=== PATIENT | female | born 1935 | race Caucasian/White ===

== ENCOUNTER 2017-02-21 06:12 | Emergency (ER) | payer OTHER ==
[~2017-02-21] VITALS: Ht 162.6 cm; Wt 73.0 kg
[~2017-02-21 06:12] MED LIST: ACET500C5 PO; ALBU90AE INHALATION; ASPI-716 PO; BRIM15DR7 BOTH EYES; CARB1TAB23 PO; DOCU-144 PO; GABA300C16 PO; GUAI-637 PO; HYDR-3498 PO; LATA2.5D9 BOTH EYES; LOSA50TA2 PO; METH1ADH TP; MIRT15TA PO; NORT10CA3 PO; ROPI2TAB3 PO; SENN-36 PO; SERT50TA PO; SIMV40TA2 PO; TRAZ50TA18 PO
[2017-02-21] MEDS ORDERED: CEFEPIME 2GM/50 ML (PMX) 50 ML IVPB STA (06:13)
[2017-02-21 06:17] VITALS: Ht 162.6 cm; Wt 73.0 kg
[2017-02-21] MEDS ORDERED: VANCOMYCIN 1 GM (PMX) 250 ML IVPB ONE (06:30)
[2017-02-21] MEDS ORDERED: ACETAMINOPHEN 325 MG TAB PO ONE (06:30)
--- NOTE | 2017-02-21 06:58 | RADRPT ---
PROCEDURE: CT Brain without contrast. CLINICAL INDICATION: Headache TECHNIQUE: Axial images from the skull base through the vertex without IV contrast. Multiplanar r eformatted images were made. Images were reviewed on a PACS workstation. The CTDIvol is 45.0 mGy a nd the DLP is 810.25 mGycm. One or more of the following dose reduction techniques were used: autom ated exposure control, adjustment of the mA and/or kV according to patient size, or use of iterative reconstruction technique. COMPARISON: None. FINDINGS: Atrophy and prominent chronic microvascular ischemic changes are seen with ex vacuo dilatation of th e ventricles, left greater than right. 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 Intr acranial vascular calcification is seen. No definite acute territorial infarction or intracranial he morrhage. No mass or midline shift is seen. No extraaxial fluid collection is seen. Prior left noa ract surgery. Mucoperiosteal thickening of the ethmoids. IMPRESSION: No definite acute intracranial abnormality. Atrophy and chronic microvascular ischemic changes with left greater than right ventricular dilatation, likely ex vacuo. Sinus mucosal disease. RPTAT: [facility] Physician Ludy Date Time Electronically viewed and signed by Physician Ludy on 02/21/2017 06:58 LE/
--- NOTE | 2017-02-21 07:17 | RADRPT ---
PROCEDURE: XR Chest. CLINICAL INDICATION: Sepsis TECHNIQUE: Portable single view of the chest COMPARISON: None. FINDINGS: There is shallow lung inflation. Cardiomegaly. Bibasilar atelectasis versus infiltrates, left greate r than right. No large effusion. Mild pulmonary vascular congestion. Aortic calcification. Degenerat neo change of the spine with cement from vertebroplasty at at least 2 levels. IMPRESSION: Cardiomegaly and pulmonary vascular congestion with very shallow lung volumes. Basilar atelectasis v ersus infiltrates. RPTAT: [facility] Physician Ludy Date Time Electronically viewed and signed by Sangeetha Hollingsworth Physician on 02/21/2017 07:17 LE/
[2017-02-21 07:19] LABS: BASOPHILS % 0.3 % (0.0-2.0); EOSINOPHILS % 0.3 % (0.0-7.0); HEMATOCRIT 40.6 % (37.0-47.0); HEMOGLOBIN 12.6 g/dl (12.0-16.0); LYMPHOCYTES # 1.4 10^3/ul (0.8-2.9); MEAN CORPUSCULAR HEMOGLOBIN 30.2 pg (29.0-33.0); MEAN CORPUSCULAR VOLUME 97.4 fl (82.0-101.0); MEAN PLATELET VOLUME 9.5 fl (7.4-10.4); MONOCYTE # 0.7 10^3/ul (0.3-0.9); MONOCYTES % 8.3 % (0.0-11.0); NEUTROPHIL # 5.8 10^3/ul (1.6-7.5); NEUTROPHILS % 72.7 % (39.0-77.0); PLATELET COUNT 217 10^3/UL (140-415); RED BLOOD COUNT 4.17 10^6/ul (4.20-5.40); RED CELL DISTRIBUTION WIDTH 13.8 % (11.5-14.5)
[2017-02-21 07:32] LABS: INR 1.04; PROTIME 13.6 Sec (12.2-14.2); PT RATIO 1.1
[2017-02-21 07:33] LABS: PARTIAL THROMBOPLASTIN TIME 31.5 Sec (25.0-35.0)
[2017-02-21 07:35] LABS: ALBUMIN 3.9 g/dl (3.3-4.9); ALBUMIN/GLOBULIN RATIO 1.11; BILIRUBIN,INDIRECT 0.1 mg/dl (0-1.1); BILIRUBIN,TOTAL 0.1 mg/dl (0.2-1.3); CALCIUM 9.2 mg/dl (8.4-10.2); CREATININE 0.98 mg/dl (0.44-1.00); POTASSIUM 4.1 mmol/L (3.5-5.1); TOTAL PROTEIN 7.4 g/dl (6.1-8.1)
[2017-02-21 07:47] LABS: TROPONIN-I 0.041 ng/ml (0.00-0.12)
--- NOTE | 2017-02-21 08:43 | ERD ---
ER Documentation Chief Complaint Chief Complaint WOLF, fever, cough x 2 days. Initial ra sats 80%, HHN per EMS- some improve HPI Patient is a 81-year-old female with Parkinson's dementia and hypertension who presents with cough and fever. Please note the history and physical exam is limited secondary to the patient's dementia. The patient also complains of a headache for the past 2 days. She has had a productive cough with wheezing. She was brought in by ambulance and was given albuterol treatment by paramedics. She had high blood pressure. She was 82% on room air in the emergency department but she is usually on supplemental oxygen of 2 L nasal cannula. Upon review of old medical records the patient one previous visit to the ER in 2016. The ambulance had to divert to [facility] because [facility] was on diversion at 6 AM. ROS All systems reviewed and are negative except as per history of present illness. Medications Home Meds Active Scripts Docusate Sodium* (Colace*) 100 Mg Capsule, 100 MG PO BID, #30 CAP Prov:SHEYLA CORBIN 11/14/15 Reported Medications Acetaminophen* (Tylophen*) 500 Mg Capsule, 1000 MG PO Q8 Y for PAIN/FEVER , TAB 11/14/15 Methyl Salicylate/Menth/Camph (Salonpas Patch) 1 Adh.patch Adh..patch, 1 ADH.PATCH TP Q8 Y for NEEDED 11/14/15 Albuterol Sulfate (Proair Respiclick) 90 Mcg Aer.pow.ba, 2 PUFFS INHALATION Q6 Y for NEEDED, #1 BOTTLE 11/14/15 Guaifenesin* (Robitussin*) 100 Mg/5 Ml Syrup, 100 MG PO Q4H Y for COUGH, ML 11/14/15 Hydrocodone Bit-Acetaminophen* (Hydrocodone-APAP*) 5-325 Tablet, 1 TAB PO Q6H Y for PAIN, TAB 11/14/15 Sennosides* (Senokot*) 8.6 Mg Tablet, 25.8 TAB PO BID, TAB HOLD IF LOOS STOOL 11/14/15 Simvastatin* (Zocor*) 40 Mg Tablet, 40 MG PO QHS, #30 TAB 11/14/15 Losartan Potassium* (Cozaar*) 50 Mg Tablet, 50 MG PO DAILY, #30 TAB 11/14/15 Latanoprost (Xalatan) 2.5 Ml Drops, 1 DROP BOTH EYES QHS, #1 BOTTLE 11/14/15 Brimonidine Tartrate* (Brimonidine Tartrate*) 0.2%-15ML Drop Opht, 1 DROP BOTH EYES BID, #1 EA 11/14/15 Gabapentin* (Gabapentin*) 300 Mg Capsule, 300 MG PO QHS, #30 CAP 11/14/15 Ropinirole Hcl* (Ropinirole Hcl*) 2 Mg Tablet, 1 MG PO TID, TAB 11/14/15 Carbidopa-Levodopa* (Sinemet*) 25-250 Mg Tablet, 1 TAB PO QID, TAB 11/14/15 Docusate Sodium* (Colace*) 100 Mg Capsule, 100 MG PO BID, #60 CAP 11/14/15 Aspirin* (Ecotrin*) 81 Mg Tablet.dr, 81 MG PO DAILY, TAB 11/14/15 Nortriptyline Hcl* (Pamelor*) 10 Mg Capsule, 20 MG PO HS, CAP 11/14/15 Trazodone Hcl* (Trazodone Hcl*) 50 Mg Tablet, 25 MG PO QHS, #30 TAB 11/14/15 Mirtazapine* (Remeron*) 15 Mg Tablet, 15 MG PO HS, TAB 11/14/15 Sertraline Hcl* (Zoloft*) 50 Mg Tablet, 50 MG PO DAILY, #30 TAB 11/14/15 Allergies Allergies: Coded Allergies: amlodipine (Verified Allergy, Unknown, 11/14/15) naproxen (Verified Allergy, Unknown, 11/14/15) nifedipine (Verified Allergy, Unknown, 11/14/15) PMhx/Soc History of Surgery: No Anesthesia Reaction: No Hx Neurological Disorder: No Hx Respiratory Disorders: No Hx Cardiac Disorders: No Hx Psychiatric Problems: No Hx Miscellaneous Medical Probl: Yes Hx Alcohol Use: No Hx Substance Use: No Hx Tobacco Use: No Smoking Status: Never smoker FmHx Unable to obtain Physical Exam Vitals Vital Signs Date Time Temp Pulse Resp B/P Pulse Ox O2 Delivery O2 Flow Rate FiO2 02/21/17 07:00 98.0 94 20 161/88 98 Nasal Cannula 02/21/17 06:29 Simple Mask 02/21/17 06:17 102.9 100 25 161/88 100 Physical Exam Const: Moderate distress Head: Atraumatic Eyes: Normal Conjunctiva ENT: Normal External Ears, Nose and Mouth. Neck: Full range of motion..~ No meningismus. Resp: Rhonchorous breath sounds diffusely Cardio: Regular rate and rhythm, no murmurs Abd: Soft, non tender, non distended. Normal bowel sounds Skin: No petechiae or rashes Back: No midline or flank tenderness Ext: No cyanosis, or edema Neur: Awake but demented at baseline Result Diagram: 02/21/17 0629 02/21/17 0629 Results 24 hrs Laboratory Tests Test 02/21/17 06:29 White Blood Count 8.010^3/ul Red Blood Count 4.1710^6/ul Hemoglobin 12.6g/dl Hematocrit 40.6% Mean Corpuscular Volume 97.4fl Mean Corpuscular Hemoglobin 30.2pg Mean Corpuscular Hemoglobin Concent 31.0g/dl Red Cell Distribution Width 13.8% Platelet Count 21059^3/UL Mean Platelet Volume 9.5fl Neutrophils % 72.7% Lymphocytes % 18.0% Monocytes % 8.3% Eosinophils % 0.3% Basophils % 0.3% Nucleated Red Blood Cells % 0.0/100WBC Neutrophils # 5.810^3/ul Lymphocytes # 1.410^3/ul Monocytes # 0.710^3/ul Eosinophils # 0.010^3/ul Basophils # 0.010^3/ul Nucleated Red Blood Cells # 0.010^3/ul Prothrombin Time 13.6Sec Prothrombin Time Ratio 1.1 INR International Normalized Ratio 1.04 Activated Partial Thromboplast Time 31.5Sec Sodium Level 142mmol/L Potassium Level 4.1mmol/L Chloride Level 100mmol/L Carbon Dioxide Level 36mmol/L Anion Gap 10 Blood Urea Nitrogen 21mg/dl Creatinine 0.98mg/dl Glucose Level 116mg/dl Lactic Acid Level 1.3mmol/L Calcium Level 9.2mg/dl Total Bilirubin 0.1mg/dl Direct Bilirubin 0.00mg/dl Indirect Bilirubin 0.1mg/dl Aspartate Amino Transf (AST/SGOT) 24IU/L Alanine Aminotransferase (ALT/SGPT) 25IU/L Alkaline Phosphatase 85IU/L Troponin I 0.041ng/ml Total Protein 7.4g/dl Albumin 3.9g/dl Globulin 3.50g/dl Albumin/Globulin Ratio 1.11 Current Medications Medications (Trade) Dose Ordered Sig/Charlette Route PRN Reason Start Time Stop Time Status Last Admin Dose Admin Cefepime HCl 50 ml @ 100 mls/hr ONCE STAT IVPB 02/21/17 06:13 02/21/17 06:42 DC 02/21/17 07:07 Vancomycin HCl (Vancocin) 250 ml @ 125 mls/hr ONCE ONCE IVPB 02/21/17 06:30 02/21/17 08:29 DC Acetaminophen (Tylenol Tab) 650 mg ONCE ONCE PO 02/21/17 06:30 02/21/17 06:31 DC 02/21/17 07:08 Procedures/MDM EKG read by me: Rate/Rhythm: Regular rate and rhythm at a normal rate Intervals: Normal Impression: No evidence of ischemia or arrhythmia Chest X-ray 1V Interpreted by me: Soft Tissue: No acute abnormalities Bones: No acute abnormalities Mediastinum/Cardiac Silhouette/Lungs: Bilateral lower lobe pneumonia CT scan of the brain shows no acute abnormality per radiology. Admit MDM: Patient's infectious symptoms have not stabilized and the patient is at risk of rapid decompensation. The patient will be admitted for careful hydration, antibiotic therapy, and infectious source control. Severe Sepsis criteria: Infectious source: Pneumonia End organ damage indicated by: No end organ damage at this time Sepsis Management: Time of recognition of sepsis: Upon arrival Within 3 hours of recognition: Blood cultures x 2 before broad-spectrum antibiotics: Yes 30 ml/kg NS bolus not given as the patient has a history of CHF and I was concerned about fluid overload Initial lactate normal Repeat lactate pending Time of recognition of septic shock: No septic shock Septic Shock Assessment: Any lactic acid > 4.0 No Persistent hypotension (SBP < 90 or 40 mmHg drop, MAP < 65) despite 30 mL/kg IV fluid bolus No Volume Re-assessment for Septic Shock (post 30 ml/kg bolus): No septic shock at this time Persistent Hypotension Treatment: Comfort care No Central line Not Required Vasopressor started Not required I considered further perfusion assessment with CVP measurement, SCVO2, bedside ultrasound volume assessment, passive leg raise, trial of further fluid bolus. And proceeded with broad-spectrum antibiotics and discussion with Dr. Grimes from [facility] who is except the patient in transfer. Accepting Care Team Current data and ongoing care discussed. Admitting Physician: Dr. Grimes from [facility] Horser Up(s): None Outstanding Data: Culture results and repeat lactic acid Critical Care: Critical care time 35 minutes excluding all billable procedures Emergent fluid management while maintaining close respiratory support. Provision of immediate and broad-spectrum antibiotic therapy. Simultaneous assessment for possible sources in order to direct targeted therapy. Consideration for invasive and chemical support to prevent cardiopulmonary collapse. Departure Diagnosis: Primary Impression: Pneumonia Pneumonia type: due to unspecified organism Laterality: bilateral Lung location: lower lobe of lung Qualified Code: J18.9 - Pneumonia of both lower lobes due to infectious organism Additional Impressions: Fever Fever type: unspecified Qualified Code: R50.9 - Fever, unspecified fever cause Sepsis Sepsis type: sepsis due to unspecified organism Qualified Code: A41.9 - Sepsis, due to unspecified organism Condition: Serious NERI MATA MD Feb 21, 2017 08:43
[2017-02-21 09:00] VITALS: BP 123/57; PULSE 86; RESP 20; TEMP 98
[2017-02-21] MEDS ORDERED: ONDANSETRON 4 MG INJ IV STA (09:22)
[2017-02-21] MEDS ORDERED: morphine 4 MG/ML VIAL IV STA (09:22)
== END 2017-02-21 10:46 | disposition short-term general hospital (02) ==
LOC: E/R 06:12
DX: J18.9 Pneumonia, unspecified organism (principal); A41.9 Sepsis, unspecified organism; G20 Parkinson's disease; I10 Essential (primary) hypertension; R40.2142 Coma scale, eyes open, spontaneous, at arrival to emergency department; R40.2252 Coma scale, best verbal response, oriented, at arrival to emergency department; R40.2362 Coma scale, best motor response, obeys commands, at arrival to emergency department; Z79.82 Long term (current) use of aspirin
CPT/HCPCS: 36415; 70450; 71010; 80053; 83605; 84484; 85025; 85610; 85730; 87040; 93005; 96374; 96375; 99291; J0692; J2270; J2405; J3370